=== PATIENT | male | born 1965 ===

== ENCOUNTER 2017-07-02 13:54 | Emergency (ER) | payer OTHER ==
[2017-07-02 13:54] VITALS: BMI 32.8
[2017-07-02 14:07] VITALS: TEMP 98.5
[2017-07-02] MEDS ORDERED: Piperacill/Tazo 3.375gm in Dex 3.375 GM/50 ML BAG IVPB STA (14:41)
[2017-07-02] MEDS ORDERED: Clindamycin 600 MG in Sodium Chloride 0.9% 100 ML IVPB STA (14:41)
[2017-07-02] MEDS ORDERED: Vancomycin 1 gm/NS 200 ml 1 GM/200 ML BAG IVPB STA (14:53)
[2017-07-02] MEDS ORDERED: Clindamycin 600mg/50ml NS 600 MG/50 ML BAG IVPB STA (14:54)
[2017-07-02 14:56] LABS: BASO # 0.1 K/uL (0.0-0.2); BASO % 1.1 % (0.0-2.0); EOS # 0.2 K/uL (0.0-0.7); EOS % 2.5 % (0.0-4.0); HEMATOCRIT 46.1 % (35.0-51.0); LYMPH # 2.1 K/uL (1.0-4.3); LYMPH % 32.9 % (20.0-40.0); MEAN CELL VOLUME 89.2 fL (80.0-94.0); MEAN CORPUSCULAR HGB CONC 33.6 g/dL (33.0-37.0); MEAN PLATELET VOLUME 7.8 fL (7.2-11.7); MONO # 0.9 K/uL (0.0-0.8); MONO % 14.2 % (0.0-10.0); NRBC % 0.1 % (0.0-2.0); RED CELL DISTRIBUTION WIDTH 13.3 % (11.5-14.5); WHITE BLOOD COUNT 6.5 K/uL (4.8-10.8)
[2017-07-02 14:57] LABS: VENOUS BLOOD GAS BASE EXCESS -0.2 mmol/L (0.0-2.0); VENOUS BLOOD GAS PCO2 44 mmHg (40-60); VENOUS BLOOD PH 7.37 (7.32-7.43)
[2017-07-02] MEDS ORDERED: Piperacillin/Tazobact 3.375 gm 100 ML IVPB ONE (14:58)
[2017-07-02] MEDS ORDERED: Vancomycin 1 GM 1 GM/250 ML BAG IVPB ONE (14:58)
[2017-07-02 15:04] LABS: CHLORIDE 100 mmol/L (98-107); SODIUM 141 mmol/L (132-148)
[2017-07-02 15:05] LABS: POTASSIUM 4.6 mmol/L (3.6-5.2)
[2017-07-02 15:07] LABS: ALB/GLOB RATIO 1.2 (1.0-2.1); ALKALINE PHOSPHATASE 64 U/L (38-126); AST/SGOT 78 U/L (17-59); BILIRUBIN,TOTAL 0.3 mg/dL (0.2-1.3); BLOOD UREA NITROGEN 9 mg/dL (9-20); CARBON DIOXIDE 26 mmol/L (22-30); GFR AFRICAN-AMERICAN > 60; GLUCOSE,RANDOM 83 mg/dL (75-110); TOTAL PROTEIN 7.9 g/dL (6.3-8.3)
[2017-07-02 15:08] LABS: ALT/SGPT 149 U/L (21-72); CALCIUM 9.2 mg/dl (8.6-10.4); MAGNESIUM 2.1 mg/dL (1.6-2.3)
--- NOTE | 2017-07-02 15:16 | CP.PCM.CON ---
History of Present Illness - History of Present Illness History of Present Illness: 51 year old male with PMHx including HTN, pre-diabetes, and hypercholesteralemia was seen in the ED for complaint of left calf wound. Patient states that 3 weeks ago he was taking out the garbage and got cut by glass. At home he has been doing local wound care and taking left of antibiotics. He states that the wound has not gotten better and therefore he decided to come to the ED. He denies any pain to the area on palpation. Denies any n/v/f/c/sob/c. Past Patient History - Past Social History Smoking Status: Never Smoked - CARDIAC Hx Cardiac Disorders: Yes Hx Hypercholesterolemia: Yes Hx Hypertension: Yes - ENDOCRINE/METABOLIC Hx Endocrine Disorders: Yes Hx Diabetes Mellitus Type 2: Yes ("pre" diabetic) - PSYCHIATRIC Hx Substance Use: No - SURGICAL HISTORY Hx Surgeries: No Meds Allergies/Adverse Reactions: Allergies Allergy/AdvReac Type Severity Reaction Status Date / Time No Known Allergies Allergy Verified 10/06/12 21:11 - Medications Medications: Current Medications Vancomycin/Sodium Chloride (Vancocin) 1 gm in 200 mls @ 133 mls/hr IVPB STAT STA Stop: 07/02/17 16:23 Clindamycin Phosphate (Cleocin In Normal Saline Addvantage) 600 mg in 50 mls @ 100 mls/hr IVPB STAT STA Stop: 07/02/17 15:23 Physical Exam - Constitutional Appears: Well, Non-toxic, No Acute Distress - Extremities Exam Additional comments: Lower extremity focused exam: Vasc: DP and PT pulses palpable 2/4. Skin temperature warm to warm from proximal to distal b/l. Ortho: No tenderness on palpation to LLE Neuro: Gross sensation intact b/l Derm: Ulceration measuring approximaltey 8 cm by 2 cm by 0.3 cm noted to to the medail aspect of the anterior calf, base is a mixture of granular and fibrotic tissue. No drainage, no purulence, no malodor, no fluctuance noted. - Neurological Exam Neurological exam: Alert, Oriented x3 - Psychiatric Exam Psychiatric exam: Normal Affect, Normal Mood Results - Vital Signs Recent Vital Signs: Last Vital Signs Temp 98.5 F 07/02/17 14:00 Pulse 78 07/02/17 14:00 Resp 20 07/02/17 14:00 BP 187/118 H 07/02/17 14:00 Pulse Ox 100 07/02/17 14:00 - Labs Result Diagrams: 07/02/17 14:52 07/02/17 14:52 Labs: Laboratory Results - last 24 hr 07/02/17 07/02/17 07/02/17 14:50 14:52 14:52 WBC 6.5 RBC 5.17 Hgb 15.5 Hct 46.1 MCV 89.2 MCH 30.0 MCHC 33.6 RDW 13.3 Plt Count 234 MPV 7.8 Neut % (Auto) 49.3 L Lymph % (Auto) 32.9 [place] % (Auto) 14.2 H Eos % (Auto) 2.5 Baso % (Auto) 1.1 Neut # 3.2 Lymph # 2.1 [place] # 0.9 H Eos # 0.2 Baso # 0.1 pO2 32 VBG pH 7.37 VBG pCO2 44 VBG HCO3 23.7 VBG Total CO2 26.8 VBG O2 Sat (Calc) 66.2 H VBG Base Excess -0.2 L VBG Potassium 4.1 Sodium 138.0 141 Chloride 108.0 H 100 Glucose 77 Lactate 1.5 Potassium 4.6 Carbon Dioxide 26 Anion Gap 20 BUN 9 Creatinine 0.8 Est GFR ( Amer) > 60 Est GFR (Non-Af Amer) > 60 Random Glucose 83 Calcium 9.2 Magnesium 2.1 Total Bilirubin 0.3 AST 78 H ALT 149 H Alkaline Phosphatase 64 Total Protein 7.9 Albumin 4.3 Globulin 3.7 Albumin/Globulin Ratio 1.2 Venous Blood Potassium 4.1 Assessment & Plan - Assessment and Plan (Free Text) Assessment: 51 year old male with a left anterior calf wound due to trauma Plan: patient examined and evaluated discussed in detail with attending, Dr. Miller chart, labs, vitals reviewed; WBC 6.5, afebrile eschar sharply debrided with sterile scissors until healthy tissue appeared bactorban and DSD applied to wound patient to keep wound clean, and dressed daily Abx per ED attending patient to follow up with podiatry clinic next week
--- NOTE | 2017-07-02 15:20 | C.PDOC ---
History Of Present Illness Patient is a 51 year old male, whose past medical history includes hypertension , and hypercholesterolemia, presents to the Emergency Department for evaluation of laceration to left lower leg. Patient states that he injured his left lower leg by a piece of glass 3 weeks ago. notes that the affected area was initially warm to touch. Patient states that he took 4 tablets of his 's Amoxicillin, and applied cortisone cream. Also, reports using home remedy that involved burning something and applying the ashes to the area. Otherwise, denies any sensory changes, fever, chills, or any other associated symptoms at this time. Time Seen by Provider: 07/02/17 14:20 Chief Complaint (Nursing): Abnormal Skin Integrity History Per: Patient History/Exam Limitations: no limitations Onset/Duration Of Symptoms: Days (3 weeks) Current Symptoms Are (Timing): Still Present Location Of Injury: Left: Leg Quality Of Symptoms: Painful, Draining. 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 Constitutional: Positive for: Chills. Negative for: Fever Musculoskeletal: Positive for: Leg Pain (left) Skin: Positive for: Other (left lower leg laceration) Neurological: Negative for: Weakness, Numbness Physical Exam - Physical Exam Appears: Non-toxic, No Acute Distress Skin: Warm, Dry, Other (5cm of open laceration with surrounding erythema and black/green discharge to left lower leg, no warmth) Head: Atraumatic, Normacephalic Eye(s): bilateral: Normal Inspection Oral Mucosa: Moist Neck: Normal ROM, Supple Extremity: Normal ROM, Tenderness (Left lower leg), No Pedal Edema, Capillary Refill (<2 sec.), No Deformity, No Swelling Pulses: Left Dorsalis Pedis: Normal, Right Dorsalis Pedis: Normal Neurological/Psych: Oriented x3, Normal Speech, Normal Motor, Normal Sensation ED Course And Treatment - Laboratory Results Result Diagrams: 07/02/17 14:52 07/02/17 14:52 O2 Sat by Pulse Oximetry: 100 (RA) Pulse Ox Interpretation: Normal Medical Decision Making Medical Decision Making: Impression: 51 year old male presents to the Emergency Department for evaluation of laceration to left lower leg. Plan: * Blood work * Blood culture * Bactroban ointment * Clindamycin * Vancomycin * Zosyn * Reassess and dispo Progress note: Patient was evaluated by podiatry resident. Disposition Counseled Patient/Family Regarding: Studies Performed, Diagnosis, Need For Followup - Disposition Disposition: HOME/ ROUTINE Disposition Time: 16:58 Condition: STABLE Additional Instructions: Follow up in clinic, you need to see the podiatry doctors on Sunday. Siga en la clinica. [place] [facility] . Prescriptions: Clindamycin [Cleocin] 300 mg PO BID #40 cap Instructions: Laceration Without Closure (ED) Forms: Gen Discharge Inst [place], [facility] ([place]), Work Excuse - POA Present On Arrival: None - Clinical Impression Clinical Impression: Cellulitis, Laceration - Scribe Statement The provider has reviewed the documentation as recorded by the Radhika Hodge All medical record entries made by the Radhika were at my direction and personally dictated by me. I have reviewed the chart and agree that the record accurately reflects my personal performance of the history, physical exam, medical decision making, and the department course for this patient. I have also personally directed, reviewed, and agree with the discharge instructions and disposition.
[2017-07-02 18:03] VITALS: BP 140/75; PULSE 65; RESP 20; O2SAT 98
== END 2017-07-02 18:04 | disposition home or self-care (01) ==
LOC: C.ER 13:54
DX: S81.812A Laceration without foreign body, left lower leg, initial encounter (principal); L03.116 Cellulitis of left lower limb; W25.XXXA Contact with sharp glass, initial encounter; Y93.E9 Activity, other interior property and clothing maintenance; Y92.89 Other specified places as the place of occurrence of the external cause
CPT/HCPCS: 80053; 82803; 83735; 85025; 87040; 96365; 96367; 99284; J2543; J3370